=== PATIENT | male | born 1990 | race Caucasian/White ===

== ENCOUNTER 2017-08-18 14:47 | Emergency (ER) | payer SELFPAY ==
--- NOTE | 2017-08-18 15:30 | ER Document Report ---
ED General - General Chief Complaint: High Blood Sugar Stated Complaint: BLOOD SUGAR ISSUES Time Seen by Provider: 08/18/17 15:24 Notes: The patient is a 26-year-old male, past medical history type I diabetic, presents after he has had multiple days of nausea, vomiting and diarrhea from a recent GI bug that the rest of his family has had. Patient said he was at work when he began to feel lightheaded. He sat down and does not think that he had any LOC and did not hit his head. He denies chest pain, shortness of breath, abdominal pain, fevers, back pain, dysuria, hematuria, hematemesis or hematochezia. TRAVEL OUTSIDE OF THE [place] IN LAST 30 DAYS: No - Related Data Allergies/Adverse Reactions: No Known Allergies Allergy (Verified 01/10/13 09:46) Home Medications: Current Home Medications Hum Insulin NPH/Reg Insulin Hm [Novolin 70-30 100 Unit/ml Vial] 2 units SUBCUT DAILY 08/18/17 [History] Past Medical History - General Information source: Patient - Social History Smoking Status: Unknown if Ever Smoked Family History: Reviewed & Not Pertinent Endocrine Medical History: Reports: Hx Diabetes Mellitus Type 1 - Immunizations Hx Diphtheria, Pertussis, Tetanus Vaccination: Yes Review of Systems - Review of Systems Notes: REVIEW OF SYSTEMS: CONSTITUTIONAL: -fevers, -chills EENT: -eye pain, -difficulty swallowing, -nasal congestion CARDIOVASCULAR:-chest pain, +near syncope. RESPIRATORY: -cough, -SOB GASTROINTESTINAL: -abdominal pain, - nausea, -vomiting, -diarrhea GENITOURINARY: -dysuria, -hematuria MUSCULOSKELETAL: -back pain, -neck pain SKIN: -rash or skin lesions. HEMATOLOGIC: -easy bruising or bleeding. LYMPHATIC: -swollen, enlarged glands. NEUROLOGICAL: -altered mental status or loss of consciousness, -headache, - neurologic symptoms PSYCHIATRIC: -anxiety, -depression. ALL OTHER SYSTEMS REVIEWED AND NEGATIVE. Physical Exam - Vital signs Vitals: Temp Pulse Resp BP Pulse Ox 98.3 F 99 16 110/69 98 08/18/17 15:02 08/18/17 15:02 08/18/17 15:02 08/18/17 15:02 08/18/17 15:02 - Notes Notes: PHYSICAL EXAMINATION: GENERAL: Well-appearing, well-nourished and in no acute distress. HEAD: Atraumatic, normocephalic. EYES: Pupils equal round and reactive to light, extraocular movements intact, sclera anicteric, conjunctiva are normal. ENT: nares patent, oropharynx clear without exudates. Moist mucous membranes. NECK: Normal range of motion, supple without lymphadenopathy LUNGS: Breath sounds clear to auscultation bilaterally and equal. No wheezes rales or rhonchi. HEART: Regular rate and rhythm without murmurs ABDOMEN: Soft, nontender, normoactive bowel sounds. No guarding, no rebound. No masses appreciated. EXTREMITIES: Normal range of motion, no pitting or edema. No cyanosis. NEUROLOGICAL: Cranial nerves grossly intact. Normal speech, normal gait. Normal sensory and motor exams. PSYCH: Normal mood, normal affect. SKIN: Warm, Dry, normal turgor, no rashes or lesions noted. Course - Re-evaluation Re-evalutation: Patient's initial Accu-Chek by EMS was 411. This improved to 250 after IV fluids. He does not have an anion gap and he is not acidotic on his blood gas. No signs of DKA. Patient was unable to provide a urine sample. EKG does not show any dangerous arrhythmias to suggest his near syncope. He has had multiple days of nausea, vomiting and diarrhea, which may have led to some dehydration. Instructed him to continue to stay hydrated and follow-up with his primary care physician for insulin adjustments. - Vital Signs Vital signs: Temp Pulse Resp BP Pulse Ox 98.3 F 99 16 110/69 98 08/18/17 15:02 08/18/17 15:02 08/18/17 15:02 08/18/17 15:02 08/18/17 15:02 - Laboratory Result Diagrams: 08/18/17 16:05 08/18/17 16:05 Laboratory results interpreted by me: 08/18/17 16:05 BUN 28 H Glucose 258 H - EKG Interpretation by Sd EKG shows normal: Sinus rhythm, [place], Intervals, QRS Complexes, ST-T Waves Discharge - Discharge Clinical Impression: Nausea vomiting and diarrhea, Near syncope Condition: Stable Disposition: HOME, SELF-CARE Additional Instructions: VOMITING: Vomiting (or nausea without vomiting) can be caused by many other different problems. It can mean that something's wrong with the stomach, such as ulcers or inflammation or the intestinal tract, such as appendicitis. But it can also be a symptom of a problem that has nothing to do with the stomach or intestines. Vomiting is common with severe headaches, earaches, tonsillitis, and kidney infections, etc. We see it with pneumonia or heart attacks. Drugs can cause nausea and vomiting. Many abdominal problems cause vomiting; for example, gallstones, kidney stones, pancreatitis, and intestinal obstruction ( blocked bowels). In most cases, curing the vomiting depends on fixing the problem that caused it. For temporary relief, we may use an anti-nausea medicine. For home use, we can prescribe suppositories, chewable pills, pills that dissolve in the mouth, or liquid anti-nausea drugs. If the vomiting seems to be caused by a problem in the stomach, acid-suppressing drugs may be prescribed as well. It's important to avoid dehydration. Sip small amounts of clear liquids ( soft drinks, tea, broth, etc) . Try to take fluids frequently even if you are vomiting to prevent dehydration. Take increasing amounts of fluid and when liquids are being consumed successfully, advance to small amounts of bland food (toast, soups, mashed potatoes, etc.) until you are able to resume a regular diet. Avoid aspirin, tobacco, and alcohol. If the vomiting worsens, if the problem that's making you vomit worsens, or if there's evidence of bleeding in the stomach (such as black, tarry stool, or bloody or black vomit), you should return immediately. Also, return if abdominal pain worsens or becomes localized to one area or you develop high fever. Call your doctor if you aren't improved in 24 hours. DIARRHEA, NON-SPECIFIC: Diarrhea means frequent, watery stools. There are many causes. Any problem that keeps the intestinal tract from absorbing water from the stool can lead to diarrhea. A sudden new diarrhea problem is usually caused by a virus, food sensitivity, toxic bacteria, or drugs. In this case, we expect the problem to go away soon. Testing is done only if you seem seriously ill from the diarrhea. If you have chronic diarrhea, or diarrhea that keeps coming back, we need to find out why. Chronic diarrhea can be due to inflammation of the bowels such as Crohn's disease or ulcerative colitis, food sensitivity such as intolerance to lactose or wheat protein, irritable bowel syndrome, and other problems. If your diarrhea is a significant problem but it's not clear why you have it, we' ll refer you to a specialist for further testing. During an episode of diarrhea, drink small amounts (two to six ounces) of clear liquids (soft drinks, sport drinks, herb teas, broth, etc). Take fluids frequently to prevent dehydration. It's usually not a problem to take mild anti- diarrhea medication such as Kaopectate or Pepto-Bismol. As the diarrhea eases, advance to small amounts of bland food (mashed potato, toast) for 24 hours. Call the physician if blood appears in your vomit or stool, if vomiting lasts longer than 24 hours, if the abdominal pain worsens or becomes localized to one area, if you develop high fever, or if you become lightheaded and weak. VIRAL SYNDROME: The physician has diagnosed a viral infection. Viruses not only cause "colds," but can cause many different symptoms including generalized aching, fever, headache, cough, diarrhea, nausea, vomiting, and fatigue. The treatment, for the most part, is simply relief of symptoms. This means that antibiotics are usually not given. Rest, fluids, pain medications and, occasionally, medication for the specific symptoms that are most bothersome will be prescribed. Use good handwashing to avoid passing the virus to others. Shared toys should be cleaned with disinfectant. Clean the toilets, sinks, and counter surfaces in bathrooms. Launder clothing in hot water. Contact the physician if you develop any new or unusual symptoms such as severe headache, stiff neck, high fever, chest pain, productive cough, or shortness of breath. You should be rechecked if you don't see marked improvement within seven to 10 days. INTRAVENOUS (I V) FLUIDS: As part of your care today, you received intravenous (IV) fluids. IV fluids are administered to patients who are dehydrated or to those who have certain chemical (electrolyte) abnormalities that need correcting. ANTINAUSEA MEDICATION: You have been given a medication to suppress nausea and vomiting. This type of medication can be given as a shot, pill, or suppository. It will usually last for many hours. Pills and shots usually last six to eight hours. For the typical illness, only one or two doses of the medication may be necessary. Mild lightheadedness may occur. This type of medicine can cause drowsiness. Do not drive or operate dangerous machinery while under its influence. Do not mix with alcohol. See your doctor at once if you have muscle spasms or tightness, or uncontrollable motions (particularly of the neck, mouth, or jaw). Persistent vomiting or severe lightheadedness should also be evaluated by the physician. FOLLOW-UP CARE: If you have been referred to a physician for follow-up care, call the physician s office for an appointment as you were instructed or within the next two days. If you experience worsening or a significant change in your symptoms, notify the physician immediately or return to the Emergency Department at any time for re-evaluation. SYNCOPAL EPISODE: Syncope (fainting or near-fainting) can occur from many different health problems. Or it can be a simple fainting spell requiring no treatment. It is safe for you to go home, but further evaluation will likely be necessary. Your work-up may include tests for internal bleeding, heart disease, medication problems, or near-strokes. Tests are not always required, however, depending on the nature of your problem. The warning signs of an impending faint include: dizziness, lightheadedness , nausea, hot flashes, tingling, and weakness. If this happens, lay down and put your feet up, then wait until all of these symptoms have passed before standing up again. If these episodes become recurrent, or if you develop chest pain, heart palpitations, mental confusion, blurred vision, or headache, then you should call the physician, or go to the emergency room. NEAR SYNCOPAL EPISODE: Syncope or near syncope (fainting or near-fainting) can occur from many different health problems. Or it can be a simple fainting spell requiring no treatment. It is safe for you to go home, but further evaluation will likely be necessary. Your work-up may include tests for internal bleeding, heart disease, medication problems, or near-strokes. Tests are not always required, however, depending on the nature of your problem. The warning signs of an impending faint include: dizziness, lightheadedness , nausea, hot flashes, tingling, and weakness. If this happens, lay down and put your feet up, then wait until all of these symptoms have passed before standing up again. If these episodes become recurrent, or if you develop chest pain, heart palpitations, mental confusion, blurred vision, or headache, then you should call the physician, or go to the emergency room. NORMAL EXAM AND WORKUP: At this time, your examination and workup show no significant abnormality. No significant abnormal physical findings were noted. All laboratory, EKG, and imaging (x-ray, CT scans, ultrasound) studies that were ordered show no significant abnormality. Although your examination and all studies that were ordered showed no significant abnormal finding, there are no examinations and no studies that are 100% accurate. There is always the possibility that some abnormality could exist and not be detected with physical examination or within the limits and capabilities of laboratory and other studies. You should return or follow up as you were instructed on your visit today for further evaluation if your symptoms do not resolve. FOLLOW-UP CARE: If you have been referred to a physician for follow-up care, call the physician s office for an appointment as you were instructed or within the next two days. If you experience worsening or a significant change in your symptoms, notify the physician immediately or return to the Emergency Department at any time for re-evaluation. DIABETES: You have an abnormally high blood sugar, suspicious for diabetes. Not all high blood sugar requires long-term treatment. High blood sugar can be due to medications, , or the stress of illness. (These cases are "borderline diabetes.") If the doctor feels your high blood sugar might get better with time, you may not require treatment now. It's very important that you follow through. Uncontrolled high blood sugar leads to early heart disease, strokes, nerve damage, eye damage, and kidney damage. All diabetics should follow a diet designed to control the blood sugar. Overweight diabetics should exercise regularly and lose weight. If this is not sufficient to control the blood sugar, pills or insulin shots are necessary. Younger people who develop diabetes almost always require insulin daily. Home testing of blood sugars or urine sugar is required. Diabetic teaching is available to help you figure insulin doses and monitor the blood sugar. Call the physician if there is faintness, excess sleepiness, or very rapid breathing. If hypoglycemia (LOW blood sugar) develops, symptoms are shakiness, weakness, sweating, and confusion. In this case, you should eat or drink something with sugar at once. INSULIN: Insulin is a natural hormone that lowers blood sugar. Normal blood sugar prevents complications of diabetes. For most diabetics, insulin is the best way to treat the illness. Be sure you know how to measure the insulin correctly. Insulin is measured in "units." There are three types of insulin: N (NPH or long acting), R (regular or short acting), and L (Lente or very long acting). Be sure you are using the right amount of each type. Insulin must be injected into the fat. You can use the abdomen, upper arms , and thighs. Select a different injection site every time. Wipe the site with alcohol before injecting. When first starting insulin, some adjusting of the insulin dose is necessary. Keep a record of each insulin dose and time of injection, and of the blood sugar and the time you test it. Sometimes insulin can make the blood sugar too low. If you become dizzy, sweaty, shaky, or confused, you may be having a hypoglycemic episode. Immediately use juice or some other sweet food. Call the doctor if the symptoms don't go away. FOLLOW-UP CARE: If you have been referred to a physician for follow-up care, call the physician s office for an appointment as you were instructed or within the next two days. If you experience worsening or a significant change in your symptoms, notify the physician immediately or return to the Emergency Department at any time for re-evaluation. Prescriptions: Ondansetron [Zofran Odt 4 mg Tablet] 1 - 2 tab PO Q4H PRN #15 tab.rapdis PRN Reason: For Nausea/Vomiting Referrals: [facility] [Outside] - Follow up as needed
[2017-08-18] MEDS: NORMAL SALINE 1000 ML 1,000 ML IV PRN ×2 (16:05→16:06)
[2017-08-18 16:31] LABS: VENOUS BLOOD BASE EXCESS 2.2 mmol/L; VENOUS BLOOD HCO3 29.5 mmol/L (20-32); VENOUS BLOOD PH 7.33 (7.30-7.42)
[2017-08-18 16:37] LABS: ABSOLUTE BASOPHILS # (AUTO) 0.1 10^3/uL (0.0-0.2); ABSOLUTE EOSINOPHILS # (AUTO) 0.2 10^3/uL (0.0-0.6); ABSOLUTE LYMPHOCYTES (AUTO) 2.6 10^3/uL (0.5-4.7); ABSOLUTE MONOCYTES (AUTO) 0.5 10^3/uL (0.1-1.4); ABSOLUTE NEUT (AUTO) 5.3 10^3/uL (1.7-8.2); EOSINOPHILS % (AUTO) 2.3 % (0-6); HEMATOCRIT 40.7 % (37.9-51.0); HEMOGLOBIN 14.1 g/dL (13.5-17.0); HGB HCT DIFFERENCE 1.6; LYMPHOCYTES % (AUTO) 29.5 % (13-45); MEAN CORPUSCULAR HEMOGLOBIN 31.4 pg (27.0-33.4); MEAN CORPUSCULAR HGB CONC 34.6 g/dL (32.0-36.0); MEAN CORPUSCULAR VOLUME 91 fl (80-97); MONOCYTES % (AUTO) 6.2 % (3-13); RED BLOOD COUNT 4.49 10^6/uL (4.35-5.55); RED CELL DISTRIBUTION WIDTH 13.3 % (11.5-14.0); WHITE BLOOD COUNT 8.7 10^3/uL (4.0-10.5)
[2017-08-18 16:48] LABS: ALANINE AMINOTRANSFERASE 35 U/L (21-72); ALBUMIN 4.1 g/dL (3.5-5.0); ALKALINE PHOSPHATASE 99 U/L (38-126); ANION GAP 14 (5-19); ASPARTATE AMINO TRANSFERASE 31 U/L (17-59); BILIRUBIN,DIRECT 0.4 mg/dL (0.0-0.4); BLOOD UREA NITROGEN 28 mg/dL (7-20); CALCIUM 9.5 mg/dL (8.4-10.2); CARBON DIOXIDE 25 mmol/L (22-30); CHLORIDE 100 mmol/L (98-107); CREATINE KINASE 155 U/L (55-170); CREATININE RESULT 0.98 mg/dL (0.52-1.25); GLUCOSE 258 mg/dL (75-110); LIPASE 95.8 U/L (23-300); POTASSIUM 4.9 mmol/L (3.6-5.0)
[2017-08-18 17:32] VITALS: BP 116/72
--- NOTE | 2017-08-18 20:39 | EKG REPORT ---
SEVERITY:- BORDERLINE ECG - SINUS RHYTHM BORDERLINE PROLONGED QT INTERVAL : Confirmed by: Tavon Roth 18-Aug-2017 20:39:33
== END 2017-08-18 17:30 | disposition home or self-care (01) ==
LOC: ER 14:47
DX: R55 Syncope and collapse (principal); R11.2 Nausea with vomiting, unspecified; R19.7 Diarrhea, unspecified; E10.9 Type 1 diabetes mellitus without complications
CPT/HCPCS: 93005; 99285; 96360; 36415; 82550; 83690; 85025; 80053; 82803; 93010; J7030

== ENCOUNTER 2018-12-23 13:00 | Emergency (ER) | payer SELFPAY ==
[2018-12-23 13:08] VITALS: BP 157/103
[2018-12-23] MEDS ORDERED: ACETAMINOPHEN 325 MG TABLET PO ONE (14:10)
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
== END 2018-12-23 15:35 | disposition home or self-care (01) ==
LOC: ER 13:00
DX: S62.002A Unspecified fracture of navicular [scaphoid] bone of left wrist, initial encounter for closed fracture (principal); V19.9XXA Pedal cyclist (driver) (passenger) injured in unspecified traffic accident, initial encounter; Y93.55 Activity, bike riding; E10.9 Type 1 diabetes mellitus without complications; F17.200 Nicotine dependence, unspecified, uncomplicated
CPT/HCPCS: 99283

== ENCOUNTER 2019-11-09 23:22 | Emergency (ER) | payer BC ==
[2019-11-09] MEDS ORDERED: ONDANSETRON HCL INJ/PF 4 MG/2 ML SDV IV ONE (23:51)
--- NOTE | 2019-11-09 23:51 | ER Document Report ---
ED Medical Screen (RME) - General Chief Complaint: High Blood Sugar Stated Complaint: SUGAR PROBLEMS Time Seen by Provider: 11/09/19 23:47 Mode of Arrival: Wheelchair Notes: 29-year-old male presented to ED for elevated blood sugar with nausea and vomiting. His Accu-Chek at home read high. Around 9:00 tonight he was given 20 units of 70/30 insulin subcutaneous. He has been nausea and vomiting since then. Is a type I diabetic. He is alert and oriented at this time but he is vomiting actively in the pit area. I have greeted and performed a rapid initial assessment of this patient. A comprehensive ED assessment and evaluation of the patient, analysis of test results and completion of medical decision making process will be conducted by an additional ED providers. TRAVEL OUTSIDE OF THE [place] IN LAST 30 DAYS: No - Related Data Allergies/Adverse Reactions: No Known Allergies Allergy (Verified 12/23/18 13:04) Past Medical History Endocrine Medical History: Reports: Hx Diabetes Mellitus Type 1 Renal/ Medical History: Denies: Hx Peritoneal Dialysis - Immunizations Hx Diphtheria, Pertussis, Tetanus Vaccination: Yes Physical Exam - Vital signs Vitals: Temp Pulse Resp BP Pulse Ox 97.8 F 92 24 H 189/113 H 100 11/09/19 23:32 11/09/19 23:32 11/09/19 23:32 11/09/19 23:32 11/09/19 23:32 Course - Vital Signs Vital signs: Temp Pulse Resp BP Pulse Ox 97.8 F 92 24 H 189/113 H 100 11/09/19 23:32 11/09/19 23:32 11/09/19 23:32 11/09/19 23:32 11/09/19 23:32 - Laboratory Laboratory results interpreted by me: 11/09/19 23:27 POC Glucose 487 H*
[2019-11-10] MEDS: NORMAL SALINE 1000 ML 1,000 ML IV PRN ×2 (00:08→01:05)
[2019-11-10 00:20] LABS: ABSOLUTE BASOPHILS # (AUTO) 0.1 10^3/uL (0.0-0.2); ABSOLUTE EOSINOPHILS # (AUTO) 0.3 10^3/uL (0.0-0.6); ABSOLUTE LYMPHOCYTES (AUTO) 1.8 10^3/uL (0.5-4.7); ABSOLUTE MONOCYTES (AUTO) 0.3 10^3/uL (0.1-1.4); ABSOLUTE NEUT (AUTO) 7.2 10^3/uL (1.7-8.2); BASOPHILS % (AUTO) 1.1 % (0-2); EOSINOPHILS % (AUTO) 2.6 % (0-6); HEMATOCRIT 36.9 % (37.9-51.0); HEMOGLOBIN 12.7 g/dL (13.5-17.0); LYMPHOCYTES % (AUTO) 18.3 % (13-45); MEAN CORPUSCULAR HEMOGLOBIN 31.1 pg (27.0-33.4); MEAN CORPUSCULAR HGB CONC 34.4 g/dL (32.0-36.0); MEAN CORPUSCULAR VOLUME 90 fl (80-97); MONOCYTES % (AUTO) 2.9 % (3-13); PLATELET COUNT 343 10^3/uL (150-450); RED BLOOD COUNT 4.09 10^6/uL (4.35-5.55); RED CELL DISTRIBUTION WIDTH 13.5 % (11.5-14.0); SEGMENTED NEUTROPHILS % (AUTO) 75.1 % (42-78); TOTAL CELLS COUNTED % (AUTO) 100 %; WHITE BLOOD COUNT 9.6 10^3/uL (4.0-10.5)
[2019-11-10] MEDS ORDERED: METOCLOPRAMIDE HCL INJ/PF 10 MG/2 ML SDV IV ONE (00:39)
[2019-11-10] MEDS ORDERED: LABETALOL HCL INJ 20 MG/4 ML DISP.SYRIN IV ONE (00:44)
--- NOTE | 2019-11-10 00:44 | ER Document Report ---
ED General - General Chief Complaint: High Blood Sugar Stated Complaint: SUGAR PROBLEMS Time Seen by Provider: 11/09/19 23:47 Mode of Arrival: Wheelchair Information source: Patient TRAVEL OUTSIDE OF THE [place] IN LAST 30 DAYS: No - HPI Onset: Other - over the last week but worse over the last several days Onset/Duration: Gradual Quality of pain: Achy, Cramping Severity: Severe Pain Level: 3 Associated symptoms: Diarrhea, Nausea, Vomiting, Other - abdominal pain Exacerbated by: Denies Relieved by: Denies Similar symptoms previously: No Recently seen / treated by doctor: No Notes: 29 year old male with a history of Type 1 DM here for nausea, vomiting, abdominal pains and high blood sugars for the last several days. The patient says he started to feel bad about a week ago and thats when his blood sugars started to fluctuate. The patient admits he has not taken his insulin as he is supposed to since he was running low on it. The patient denies fevers, chills, sweats, cough, urinary symptoms but he is having some diarrhea. The patient denies known sick contacts. - Related Data Allergies/Adverse Reactions: No Known Allergies Allergy (Verified 12/23/18 13:04) Home Medications: 70/30 insulin sliding scale Past Medical History - General Information source: Patient - Social History Smoking Status: Current Every Day Smoker Frequency of alcohol use: None Drug Abuse: None Family History: Reviewed & Not Pertinent Patient has suicidal ideation: No Patient has homicidal ideation: No Endocrine Medical History: Reports: Hx Diabetes Mellitus Type 1 Renal/ Medical History: Denies: Hx Peritoneal Dialysis - Immunizations Hx Diphtheria, Pertussis, Tetanus Vaccination: Yes Review of Systems - Review of Systems Constitutional: Malaise, Other - high blood sugars EENT: No symptoms reported Cardiovascular: No symptoms reported Respiratory: No symptoms reported Gastrointestinal: Diarrhea, Nausea, Vomiting Genitourinary: No symptoms reported Male Genitourinary: No symptoms reported Musculoskeletal: No symptoms reported Skin: No symptoms reported Hematologic/Lymphatic: No symptoms reported Neurological/Psychological: No symptoms reported -: Yes All other systems reviewed and negative Physical Exam - Vital signs Vitals: Temp Pulse Resp BP Pulse Ox 97.8 F 92 24 H 189/113 H 100 11/09/19 23:32 11/09/19 23:32 11/09/19 23:32 11/09/19 23:32 11/09/19 23:32 - Notes Notes: GENERAL: ill-appearing, well-nourished, moderate acute distress. HEAD: Atraumatic, normocephalic. EYES: Pupils equal round and reactive to light, extraocular movements intact, sclera anicteric, conjunctiva are normal. ENT: Nares patent, oropharynx clear without exudates. Moist mucous membranes. NECK: Normal range of motion, supple without lymphadenopathy or JVD. LUNGS: Breath sounds clear to auscultation bilaterally and equal. No wheezes rales or rhonchi. HEART: Tachycardic, regular rhythm without murmurs, rubs or gallops. ABDOMEN: Soft, mild diffuse tenderness, normoactive bowel sounds. No guarding, no rebound. No masses appreciated. EXTREMITIES: Normal range of motion, no pitting or edema. No clubbing or cyanosis. NEUROLOGICAL: Cranial nerves II through XII grossly intact. Normal speech, normal gait. PSYCH: Normal mood, normal affect. SKIN: Warm, Dry, normal turgor, no rashes or lesions noted. Course - Re-evaluation Re-evalutation: 11/10/19 01:09 The patient does not appear to be in DKA since his anion gap is only 14. Patient may have a viral illness coupled with insulin noncompliance. Patient treated in the ER with fluids, Zofran, Reglan, Insulin. Plan to get blood sugar down to the 200s prior to discharge. Patient was also noted to be very hypertensive but he is actively vomiting and dry heaving. Will treat with Labetolol 10mg IV. 11/10/19 02:05 The patient is feeling much better at this point and he is now asking for something to drink. The patient's lactic acid was elevated at 3.2 likely due to volume depletion and vomiting. The patient's BP has come down as well at this point. Plan to continue to hydrate and get his sugar down. Assuming he can tolerate POs will DC patient with a script for zofran and have him follow up with his PCP for outpatient management of his diabetes. The patient sounds like he has had some insurance issues which have prohibited him from getting his needed insulin. - Vital Signs Vital signs: Temp Pulse Resp BP Pulse Ox 97.8 F 92 16 188/106 H 97 11/09/19 23:32 11/09/19 23:32 11/10/19 01:01 11/10/19 01:01 11/10/19 01:01 - Laboratory Result Diagrams: 11/10/19 00:09 11/10/19 00:09 Laboratory results interpreted by me: 11/09/19 11/10/19 11/10/19 23:27 00:09 00:09 RBC 4.09 L Hgb 12.7 L Hct 36.9 L [place] % (Auto) 2.9 L BUN 22 H Glucose 485 H* POC Glucose 487 H* Lactic Acid 11/10/19 00:55 RBC Hgb Hct [place] % (Auto) BUN Glucose POC Glucose Lactic Acid 3.2 H - EKG Interpretation by Me EKG shows normal: Sinus rhythm, [place], Intervals, QRS Complexes, ST-T Waves Rate: Normal Rhythm: NSR Discharge - Discharge Clinical Impression: Hyperglycemia, Acidosis, lactic Vomiting Qualifiers: Vomiting type: unspecified Vomiting Intractability: non-intractable Nausea presence: with nausea Qualified Code(s): R11.2 - Nausea with vomiting, unspecified Condition: Stable Disposition: HOME, SELF-CARE Instructions: Vomiting ([facility]) Additional Instructions: Drink plenty of water in the days to come. Use Zofran as needed for nausea. Take your insulin as prescribed and follow up with your primary care doctor fo better management of your diabetes. Prescriptions: Ondansetron [Zofran Odt 4 mg Tablet] 1 tab PO Q8H PRN #15 tab.rapdis PRN Reason: For Nausea/Vomiting
[2019-11-10 00:47] LABS: ALBUMIN 4.3 g/dL (3.5-5.0); ALKALINE PHOSPHATASE 114 U/L (38-126); ANION GAP 14 (5-19); ASPARTATE AMINO TRANSFERASE 43 U/L (17-59); BILIRUBIN,DIRECT 0.3 mg/dL (0.0-0.4); BLOOD UREA NITROGEN 22 mg/dL (7-20); CALCIUM 10.1 mg/dL (8.4-10.2); CARBON DIOXIDE 27 mmol/L (22-30); CHLORIDE 104 mmol/L (98-107); POTASSIUM 4.1 mmol/L (3.6-5.0); TOTAL PROTEIN 7.5 g/dL (6.3-8.2)
[2019-11-10 00:58] LABS: GLUCOSE 485 mg/dL (75-110)
[2019-11-10] MEDS ORDERED: INSULIN REG, HUMAN 100 UNIT/ML 3 ML VIAL (PYX) SUBCUT ONE (01:07)
[2019-11-10] MEDS ORDERED: NORMAL SALINE 1000 ML 1,000 ML IV ONE ×2 (01:08→02:09)
[2019-11-10 01:09] LABS: VENOUS BLOOD BASE EXCESS 1.4 mmol/L; VENOUS BLOOD HCO3 27.3 mmol/L (20-32); VENOUS BLOOD PCO2 48.6 mmHg (35-63); VENOUS BLOOD PH 7.37 (7.30-7.42)
--- NOTE | 2019-11-10 01:09 | EKG REPORT ---
SEVERITY:- BORDERLINE ECG - SINUS RHYTHM BORDERLINE PROLONGED QT INTERVAL : Confirmed by: Yani Infante MD 10-Nov-2019 01:09:20
[2019-11-10 02:44] LABS: APPEARANCE,URINE CLEAR; BILIRUBIN,URINE NEGATIVE (NEGATIVE); COLOR,URINE STRAW; GLUCOSE, URINE >=500 mg/dL (NEGATIVE); KETONES,URINE NEGATIVE (NEGATIVE); PROTEIN,URINE 100 mg/dL (NEGATIVE); URINE SPECIFIC GRAVITY 1.016; UROBILINOGEN,URINE NEGATIVE mg/dL (<2.0)
[2019-11-10 03:47] VITALS: BP 135/82
== END 2019-11-10 03:47 | disposition home or self-care (01) ==
LOC: ER 23:22
DX: E10.10 Type 1 diabetes mellitus with ketoacidosis without coma (principal); R11.2 Nausea with vomiting, unspecified; R19.7 Diarrhea, unspecified; R53.81 Other malaise; F17.200 Nicotine dependence, unspecified, uncomplicated; Z79.4 Long term (current) use of insulin
CPT/HCPCS: 93005; 99284; 96361; 96374; 96375; 36415; 82962; 83605; 83690; 85025; 80053; 81001; 82803; 93010; J3490; J2765; J1815; J2405; J7030

== ENCOUNTER → 2020-03-26 | Outpatient (CLI) | payer BC ==
[2020-03-26 11:15] VITALS: BP 121/61
--- NOTE | 2020-03-26 11:15 | ER RDC ASSESSMENT REPORT ---
Intake - In the Last 14 days Have you traveled outside [place]?: No Have you been in close contact with someone CONFIRMED: Yes Worked in Healthcare?: No - Symptoms Subjective Fever([place] feverish): No Chills: No Muscule Aches: No Runny Nose: Yes Sore Throat: No Cough (New or worsening chronic cough): No Shortness of breath: No Nausea or Vomiting: No Headache: Yes Abdominal Pain: No Diarrhea(3 or more loose stools in last 24 hours): No - Do you have any of the following Chronic lung disease: Asthma or emphysema or COPD: No Cystic Fibrosis: No Diabetes: Yes High Blood Pressure: No Cardiovascular Disease: No Chronic Kidney Disease: No Chronic Liver Disease: No Chronic blood disorder like Sickle Cell Disease: No Weak immune system due to disease or medication: No Neurologic condition that limits movement: No Developmental delay - Moderate to Severe: No Recent (within past 2 weeks) or current : No Morbid Obesity (>100 pounds over ideal weight): No - Objective Temperature: 98.9 F Pulse Rate: 98 Respiratory Rate: 17 Blood Pressure: 121/61 O2 Sat by Pulse Oximetry: 96 Objective: Given above, testing performed: covid Disposition: Home; Selfcare General - General Chief Complaint: Runny Nose Time Seen by Provider: 03/26/20 10:45 - HPI Notes: 1-year-old male presents to [facility] clinic for COVID-19 testing after exposure to a coworker that has tested positive. Patient has medical history significant for type 1 diabetes, seasonal allergies, and current tobacco use. Patient is reporting no symptoms beyond a runny nose and headache which he often has with his seasonal allergic rhinitis. Patient is denying any fever, chills, muscle aches, sore throat, cough, shortness of breath, nausea, abdominal pain or diarrhea. - Related Data Allergies/Adverse Reactions: No Known Allergies Allergy (Verified 12/23/18 13:04) Home Medications: Levemir NovoLog Past Medical History - General Information source: Patient - Social History Smoking Status: Current Every Day Smoker Smoking Education Provided: Yes Family History: Reviewed & Not Pertinent - Past Medical History Cardiac Medical History: Reports: None Pulmonary Medical History: Reports: None EENT Medical History: Reports: None Neurological Medical History: Reports: None Endocrine Medical History: Reports: Hx Diabetes Mellitus Type 1 Renal/ Medical History: Reports: None. Denies: Hx Peritoneal Dialysis Malignancy Medical History: Reports None GI Medical History: Reports: None Musculoskeletal Medical History: Reports None Skin Medical History: Reports None Psychiatric Medical History: Reports: None Traumatic Medical History: Reports: None Infectious Medical History: Reports: None Past Surgical History: Reports: None Physical Exam - General General appearance: Appears well In distress: None Notes: PHYSICAL EXAMINATION: GENERAL: Well-appearing and in no acute distress. HEAD: Atraumatic, normocephalic. EYES: sclera anicteric, conjunctiva are normal. ENT: nares patent. Moist mucous membranes. NECK: Normal range of motion, supple without lymphadenopathy LUNGS: CTAB and equal. No wheezes rales or rhonchi. HEART: Regular rate and rhythm without murmurs ABDOMEN: Soft, nontender, normal bowel sounds, no guarding. EXTREMITIES: Normal range of motion, no pitting edema. No cyanosis. NEUROLOGICAL: Cranial nerves grossly intact. Normal speech. PSYCH: Normal mood, normal affect. SKIN: Warm, Dry, normal turgor, no rashes or lesions noted Patient Education/Counseling Counseling/Education: Patient presents for COVID 19 testing after exposure to coworker who is confirmed positive for COVID 19. Patient remains asymptomatic at this time. Patient does not have emergency worrying symptoms such as difficulty breathing, shortness of breath, chest pain, pressure, confusion or cyanosis. Patient appears suitable for discharge as vital signs are stable and patient is nontoxic in appearance. Good return precautions have been discussed with patient, patient verbalized understanding and is agreeable with discharge plan of care at this time. Guidance for worsening S/SX: As a person under investigation for Covid 19, the [place] department of Health and Human Services, division of public health advises you to adhere to the following guidance until your test results are reported to you. If your test result is positive, you will receive additional information from your provider and your local health department at that time. Remain at home until you are cleared by the health provider or public health authorities. Keep a log of visitors to your home, notify any visitors to your home of your isolation status. If you plan to move to a new address or leave the county, notify the local health department in your County. Call your doctor or seek care if you have an urgent medical need. Before seeking medical care, call ahead to get instructions from the provider before arriving at the medical office clinic or hospital. Notify them that you are being tested for the virus that causes Covid 19 so that arrangements can be made, as necessary, to prevent transmission to others in the healthcare setting. Next, notify the local health department in your county. If a medical emergency arises and you need to call 911, inform the first responders that you are being tested for the virus that causes Covid 19. Next, notify the local health department in your county. RDC Discharge - Discharge Clinical Impression: Encounter for screening laboratory testing for COVID-19 virus Allergic rhinitis Qualifiers: Allergic rhinitis trigger: unspecified Allergic rhinitis seasonality: seasonal Qualified Code(s): J30.2 - Other seasonal allergic rhinitis Condition: Good Disposition: Home; Selfcare
== END ==
LOC: RDC 09:53
PROVIDERS: ATTEND Registered Nurse
DX: Z20.828 Contact with and (suspected) exposure to other viral communicable diseases (principal); R09.89 Other specified symptoms and signs involving the circulatory and respiratory systems; R51 Headache; E10.9 Type 1 diabetes mellitus without complications; J30.2 Other seasonal allergic rhinitis; F17.200 Nicotine dependence, unspecified, uncomplicated
CPT/HCPCS: 87635; C9803; 99201; 99211

== ENCOUNTER 2020-06-16 19:27 | Emergency (ER) | payer BC ==
--- NOTE | 2020-06-16 20:15 | ER Document Report ---
ED General - General Chief Complaint: Low Blood Sugar Stated Complaint: DIABETIC ISSUES Time Seen by Provider: 06/16/20 20:14 TRAVEL OUTSIDE OF THE [place] IN LAST 30 DAYS: No - HPI Notes: 29-year-old male presents with low blood sugar. Information is primarily provided by patient's . She states that this evening she went to go wake him up from a nap, he was hard to wake up and she noticed that he was sweaty, took his blood sugar and it read "low" on the monitor. She was able to awaken him and he drinks some orange juice. However then he started to "lose consciousness" and spit up the orange juice, states that eventually he started to become stiff and his whole body was shaking like a seizure. She called EMS. Per chart, glucose on arrival was 65, he was administered D10 and sugar increas ed to 265, then decrease to 135. He was 95 on arrival here. Patient's reports that on June 04 his insulin doses have been increased, he is now taking an extra 8 units of Levemir. She states that for the past couple days he has been swinging between highs and lows. Sugars run anywhere from 200s to 400, monitor occasionally reading high. States that when the monitor reads low this typically indicates its 24 or less. Does not think he had much to eat today. Denies any sort of recent illness. Patient currently denies complaints. He denies fever, cough, shortness of breath, chest pain, bowel pain, nausea vomiting or diarrhea. - Related Data Allergies/Adverse Reactions: No Known Allergies Allergy (Verified 06/16/20 19:48) Past Medical History - General Information source: Patient, Relative - Social History Smoking Status: Unknown if Ever Smoked Family History: Reviewed & Not Pertinent Patient has homicidal ideation: No Endocrine Medical History: Reports: Hx Diabetes Mellitus Type 1 Renal/ Medical History: Denies: Hx Peritoneal Dialysis - Immunizations Hx Diphtheria, Pertussis, Tetanus Vaccination: Yes Review of Systems - Review of Systems Constitutional: denies: Fever EENT: No symptoms reported Cardiovascular: denies: Chest pain Respiratory: denies: Short of breath Gastrointestinal: denies: Abdominal pain, Diarrhea, Nausea, Vomiting Genitourinary: No symptoms reported Musculoskeletal: No symptoms reported Skin: No symptoms reported Physical Exam - Vital signs Vitals: Pulse Ox 90 L 06/16/20 19:37 - General General appearance: Alert In distress: None - HEENT Head: Normocephalic, Atraumatic Extraocular movements intact: Yes Pupils: PERRL - Respiratory Breath sounds: Normal - Cardiovascular Rhythm: Other Heart sounds: Normal auscultation - Abdominal Tenderness: Nontender - Extremities General upper extremity: Normal ROM General lower extremity: Normal ROM - Neurological Neuro grossly intact: Yes Cognition: Normal Orientation: AAOx4 - Psychological Associated symptoms: Normal affect - Skin Skin Temperature: Warm Course - Re-evaluation Re-evalutation: 29-year-old male insulin-dependent diabetic here with hypoglycemia at home. Sounds like he has had recent issues swinging between highs and lows, possibly related to increased dosing and poor oral intake today. Blood sugar 95 on arrival here, D5 normal saline initiated prior to evaluation, will continue this. Vital signs are stable, physical exam otherwise unremarkable. Will additionally provide patient complex carbohydrate. Check labs to assure that no electrolyte disturbance or MACHELLE is present. 06/16/20 22:11 No leukocytosis or left shift. Electrolytes within normal limits. Creatinine within normal limits. Glucose 95. There is a slight elevation of LFTs, T bili and lipase are within normal limits. EtOH negative. 06/16/20 23:13 Patient has tolerated a sandwich and crackers. Per nursing he had pulled out his IV, so he received about half a liter of D5 NS. His blood glucose has remained stable, hyperglycemic technically, will allow this given his reported lows. 06/16/20 23:15 Updated patient and on lab results. Discussed need to please call PCP in the morning to discuss insulin regimen. Return precautions given, patient stable at time of discharge. - Vital Signs Vital signs: Temp Pulse Resp BP Pulse Ox 98.7 F 12 139/86 H 99 06/16/20 19:39 06/16/20 22:01 06/16/20 22:01 06/16/20 22:01 - Laboratory Result Diagrams: 06/16/20 19:44 06/16/20 19:44 Laboratory results interpreted by me: 06/16/20 06/16/20 06/16/20 19:44 19:44 22:22 RBC 3.63 L Hgb 11.7 L Hct 32.7 L POC Glucose 287 H AST 75 H ALT 81 H Total Protein 6.2 L Urine Protein Urine Glucose (UA) Urine Ascorbic Acid 06/16/20 22:38 RBC Hgb Hct POC Glucose AST ALT Total Protein Urine Protein 100 H Urine Glucose (UA) >=500 H Urine Ascorbic Acid 40 H Discharge - Discharge Clinical Impression: Hypoglycemia due to type 1 diabetes mellitus Condition: Stable Disposition: HOME, SELF-CARE Additional Instructions: Please call your doctor in the morning to discuss insulin regimen. Be sure to eat and drink enough throughout the day. Please return to the emergency department for any concerning worsening symptoms. Forms: Return to Work
[2020-06-16] MEDS ORDERED: DEXTROSE 5%-WATER 1000 ML 1,000 ML IV ONE (20:24)
[2020-06-16 20:55] LABS: ABSOLUTE BASOPHILS # (AUTO) 0.1 10^3/uL (0.0-0.2); ABSOLUTE EOSINOPHILS # (AUTO) 0.4 10^3/uL (0.0-0.6); ABSOLUTE LYMPHOCYTES (AUTO) 2.7 10^3/uL (0.5-4.7); ABSOLUTE MONOCYTES (AUTO) 0.6 10^3/uL (0.1-1.4); ABSOLUTE NEUT (AUTO) 3.7 10^3/uL (1.7-8.2); BASOPHILS % (AUTO) 1.3 % (0-2); EOSINOPHILS % (AUTO) 5.5 % (0-6); HEMATOCRIT 32.7 % (37.9-51.0); HEMOGLOBIN 11.7 g/dL (13.5-17.0); LYMPHOCYTES % (AUTO) 36.3 % (13-45); MEAN CORPUSCULAR HEMOGLOBIN 32.2 pg (27.0-33.4); MEAN CORPUSCULAR HGB CONC 35.7 g/dL (32.0-36.0); MEAN CORPUSCULAR VOLUME 90 fl (80-97); MONOCYTES % (AUTO) 8.3 % (3-13); PLATELET COUNT 365 10^3/uL (150-450); RED BLOOD COUNT 3.63 10^6/uL (4.35-5.55); RED CELL DISTRIBUTION WIDTH 13.3 % (11.5-14.0); SEGMENTED NEUTROPHILS % (AUTO) 48.6 % (42-78); TOTAL CELLS COUNTED % (AUTO) 100 %; WHITE BLOOD COUNT 7.5 10^3/uL (4.0-10.5)
[2020-06-16 21:02] LABS: ALBUMIN 3.7 g/dL (3.5-5.0); ALKALINE PHOSPHATASE 104 U/L (38-126); ANION GAP 11 (5-19); ASPARTATE AMINO TRANSFERASE 75 U/L (17-59); BILIRUBIN,DIRECT 0.2 mg/dL (0.0-0.4); BILIRUBIN,TOTAL 0.5 mg/dL (0.2-1.3); BLOOD UREA NITROGEN 20 mg/dL (7-20); CALCIUM 9.4 mg/dL (8.4-10.2); CARBON DIOXIDE 25 mmol/L (22-30); CHLORIDE 106 mmol/L (98-107); GLUCOSE 95 mg/dL (75-110); POTASSIUM 4.2 mmol/L (3.6-5.0); TOTAL PROTEIN 6.2 g/dL (6.3-8.2)
[2020-06-16 21:05] LABS: ALCOHOL < 10 mg/dL (NONE DETECTED)
[2020-06-16 22:12] VITALS: BP 139/86
[2020-06-16 22:55] LABS: APPEARANCE,URINE CLEAR; BILIRUBIN,URINE NEGATIVE (NEGATIVE); COLOR,URINE YELLOW; GLUCOSE, URINE >=500 mg/dL (NEGATIVE); KETONES,URINE NEGATIVE (NEGATIVE); LEUKOCYTE ESTERASE,URINE NEGATIVE (NEGATIVE); NITRITE,URINE NEGATIVE (NEGATIVE); PROTEIN,URINE 100 mg/dL (NEGATIVE); URINE SPECIFIC GRAVITY 1.013; UROBILINOGEN,URINE NEGATIVE mg/dL (<2.0)
[2020-06-16 23:11] LABS: URINE AMPHETAMINES SCREEN NEGATIVE; URINE BARBITURATES SCREEN NEGATIVE; URINE BENZODIAZEPINES SCREEN NEGATIVE; URINE COCAINE SCREEN NEGATIVE; URINE MARIJUANA (THC) SCREEN UNCONFIRMED POSITIVE; URINE METHADONE SCREEN NEGATIVE; URINE PHENCYCLIDINE SCREEN NEGATIVE
== END 2020-06-17 01:01 | disposition home or self-care (01) ==
LOC: ER 19:27
DX: E10.649 Type 1 diabetes mellitus with hypoglycemia without coma (principal); Z79.4 Long term (current) use of insulin
CPT/HCPCS: 99284; 96360; 96361; 36415; 82962; 80307 ×2; 83690; 83735; 85025; 80053; 81001; J7060